=== PATIENT | male | born 1960 | race Caucasian/White ===

== ENCOUNTER 2018-09-11 08:55 | Emergency (ER) | payer BC ==
[2018-09-11 09:13] VITALS: BP 131/70
[2018-09-11 09:49] LABS: Influenza A Molecular POSITIVE (Negative)
--- NOTE | 2018-09-11 10:11 | UC ---
Respiratory Complaint HPI - HPI Summary HPI Summary: 1. cough x 4 days fever, chills, body aches, sore throat, symptoms are severe, worse over the past 2 days 2. right lower back pain x 6 weeks, radiating to his right leg, pain is sharp , shooting, no lower ext, numbness, no urinary sx 3. hx of DM2, not taking his meds - History of Current Complaint Chief Complaint: UCGeneralIllness Stated Complaint: FEVER, BODY ACHES Time Seen by Provider: 09/11/18 09:12 Hx Obtained From: Patient, Family/Systems Test Engineer Onset/Duration: Gradual Onset, Lasting Days - 4, Still Present Timing: Constant Severity Initially: Severe Severity Currently: Severe Pain Intensity: 9 Character: Cough: Nonproductive Aggravating Factors: Exertion, Deep Breaths Alleviating Factors: Nothing Associated Signs And Symptoms: Positive: Fever, Chills, URI, Nasal Congestion. Negative: Dyspnea, Pleuritic Chest Pain, Wheezing, Hemoptysis, Dizziness, Calf Pain, Calf Swelling, Edema - Allergies/Home Medications Allergies/Adverse Reactions: Allergies Allergy/AdvReac Type Severity Reaction Status Date / Time No Known Allergies Allergy Verified 09/11/18 09:06 Home Medications: Home Medications Ibuprofen TAB* [Advil TAB*] 400 mg PO Q6H PRN 09/11/18 [History Confirmed ] PMH/Surg Hx/FS Hx/Imm Hx - Additional Past Medical History Additional PMH: hyperlipidema, sciatica Endocrine History: Diabetes Cardiovascular History: Hypertension - Surgical History Surgical History: None - Family History Known Family History: Positive: Hypertension, Diabetes - Social History Alcohol Use: None Substance Use Type: None Smoking Status (MU): Current Every Day Smoker Type: Cigarettes Amount Used/How Often: 2 packs Length of Time of Smoking/Using Tobacco: 40 yrs Review of Systems All Other Systems Reviewed And Are Negative: Yes Constitutional: Positive: Fever, Chills, Fatigue Skin: Positive: Negative Eyes: Positive: Negative ENT: Positive: Sore Throat, Nasal Discharge Respiratory: Positive: Cough Cardiovascular: Positive: Negative Gastrointestinal: Positive: Negative Genitourinary: Positive: Negative Is Patient Immunocompromised?: No Physical Exam Triage Information Reviewed: Yes Appearance: Well-Nourished, Pain Distress Vital Signs: Initial Vital Signs Temp 97.8 F 09/11/18 09:07 Pulse 109 02/19/19 09:07 Resp 18 09/11/18 09:07 BP 131/70 09/11/18 09:07 Pulse Ox 99 09/11/18 09:07 Vital Signs Reviewed: Yes Eye Exam: Normal Eyes: Positive: Conjunctiva Clear ENT: Positive: Normal ENT inspection, Hearing grossly normal, Pharynx normal Neck: Positive: Supple, Nontender, No Lymphadenopathy Respiratory: Positive: Chest non-tender, Lungs clear, Normal breath sounds, No respiratory distress Cardiovascular: Positive: Tachycardia Abdomen Description: Positive: Nontender, Soft. Negative: CVA Tenderness (R), CVA Tenderness (L), Distended, Guarding Bowel Sounds: Positive: Present Skin Exam: Normal UC Diagnostic Evaluation - Laboratory O2 Sat by Pulse Oximetry: 99 Respiratory Course/Dx - Differential Dx/Diagnosis Provider Diagnosis: Influenza, Sciatica, Diabetes Discharge - Sign-Out/Discharge Documenting (check all that apply): Patient Departure All imaging exams completed and their final reports reviewed: No Studies - Discharge Plan Condition: Good Disposition: HOME Prescriptions: Cyclobenzaprine TAB* [Flexeril 10 MG TAB*] 10 mg PO BID PRN #20 tab PRN Reason: Pain Metformin HCl 500 mg PO BID #60 tablet Patient Education Materials: Sciatica (ED), Influenza (ED), Managing Diabetes During Sick Days (ED) Referrals: Vashti Heller [Primary Care Provider] - Additional Instructions: elevated blood glucose 406 will re-start Metforman, increase fluid, please follow up with your pcp curtis , go to Emergency department if getting worse - Billing Disposition and Condition Condition: GOOD Disposition: Home
== END 2018-09-11 10:12 | disposition home or self-care (01) ==
LOC: UCCORT 08:55
DX: J11.1 Influenza due to unidentified influenza virus with other respiratory manifestations (principal); E11.9 Type 2 diabetes mellitus without complications; M54.30 Sciatica, unspecified side; F17.210 Nicotine dependence, cigarettes, uncomplicated; I10 Essential (primary) hypertension
CPT/HCPCS: 99212; G0463